=== PATIENT | male | born 1940 | race Caucasian/White ===

== ENCOUNTER 2019-05-05 | Emergency (ER) | payer MEDICARE, BC ==
[~2019-05-05] MED LIST: ATENOLOL25 MG PO; LORTAB5 PO; PREDNISONE10 MG PO; UROXATRAL10 MG
[2019-05-05] MEDS ORDERED: TOPROL XL25 M1 PO (08:12)
[2019-05-05] MEDS ORDERED: CEPHALEXIN500 M1 PO (09:36)
== END 2019-05-05 10:01 | disposition home or self-care (01) ==
PROC: 0H96XZZ Drainage of Back Skin, External Approach (ICD-10-PCS; principal; 2019-05-05)
DX: L02.212 Cutaneous abscess of back [any part, except buttock and flank] (principal); I10 Essential (primary) hypertension

== ENCOUNTER 2023-05-28 12:53 | Emergency (ER) | payer MEDICARE, BC ==
[2023-05-28] VITALS (11 sets, daily range): BP systolic 133–171; BP diastolic 56–81
[~2023-05-28] VITALS: Ht 188 cm; Wt 81.6 kg
[~2023-05-28 12:53] MED LIST changes: +CEPHALEXIN500 M1 PO; +TOPROL XL25 M1 PO
[2023-05-28 13:38] LABS: BASO% 0.3 % (0-3); EOS% 1.9 % (0-8); HEMATOCRIT 39.9 % (39.0-50.0); IMMATURE GRANULOCYTES 0.2 % (0.0-5.0); LYMPH% 16.6 % (15-41); MEAN CELL VOLUME 96.6 fL CALC (80.0-100.0); MEAN CORPUSCULAR HGB 31.5 pG CALC (26.0-32.0); MEAN CORPUSCULAR HGB CONC 32.6 g/dL CAL (32.0-36.0); MONO% 6.6 % (2-13); NEUT# 7.27 thou/uL (1.82-7.42); NEUT% 74.4 % (42-76); RED BLOOD COUNT 4.13 mill/uL (4.70-6.10); RED CELL DISTRI WIDTH 12.6 % (11.5-15.5)
[2023-05-28 13:55] LABS: ALBUMIN 3.9 g/dL (3.2-5.0); ALKALINE PHOSPHATASE 88 u/l (38-126); ANION GAP 9 (6-22 (CALC)); BILIRUBIN, TOTAL 1.1 mg/dL (0.2-1.3); BUN 13 mg/dL (8-23); BUN/CREATININE RATIO 11 (12-20 (CALC)); CARBON DIOXIDE 24 mmol/l (22-30); CHLORIDE 108 mmol/l (95-108); CREATININE 1.2 mg/dL (0.7-1.3); GFR FOR AFR.AMER. > 60 ML/MIN (>=60 (CALC)); GFR OTHER RACES 58 ML/MIN (>=60 (CALC)); SGOT/AST 29 u/l (19-48); SODIUM 138 mmol/l (137-146); TOTAL PROTEIN 6.3 g/dL (6.3-8.2)
[2023-05-28] MEDS ORDERED: LOSARTAN Potassium 25 MG/TAB PO ONE (13:55)
[2023-05-28] MEDS ORDERED: LISINOPRIL 5 MG/TAB PO ONE (13:55)
[2023-05-28 14:03] LABS: POTASSIUM 3.4 mmol/l (3.5-5.1)
[2023-05-28 14:17] LABS: URINE BILIRUBIN - DIPSTICK Negative (NEGATIVE); URINE BLOOD DIPSTICK Negative (NEGATIVE); URINE GLUCOSE - DIPSTICK Negative (NEGATIVE); URINE KETONE Negative (NEGATIVE); URINE LEUK ESTERASE Negative (NEGATIVE); URINE NITRITE - DIPSTICK Negative (Negative); URINE PH 5.5 (4.5-8.0); URINE PROTEIN - DIPSTICK Negative (NEG-TRACE); URINE SPECIFIC GRAVITY <=1.005; URINE UROBILINOGEN - DIPSTICK 0.2 E.U./dL (0.2)
[2023-05-28 14:22] LABS: URINE COLOR Yellow
[2023-05-28] MEDS ORDERED: LASIX 20 MG TAB20 MG PO (16:28)
== END 2023-05-28 16:43 | disposition home or self-care (01) ==
LOC: ED 12:53
PROVIDERS: Family Medicine; Nurse Practitioner
DX: I10 Essential (primary) hypertension (principal)